=== PATIENT | female | born 1960 | race Caucasian/White ===

== ENCOUNTER 2017-03-30 16:08 | Emergency (ER) | payer OTHER ==
[~2017-03-30] VITALS: Ht 165.1 cm; Wt 68.2 kg
[2017-03-30 16:17] VITALS: BP 156/102; PULSE 86; RESP 18; O2SAT 97
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
[2017-03-30] MEDS ORDERED: Promethazine 25 mg/mL Inj IM ONE (18:50)
== END 2017-03-30 19:25 | disposition home or self-care (01) ==
LOC: SED 16:08
DX: G43.919 Migraine, unspecified, intractable, without status migrainosus (principal); Y04.8XXD Assault by other bodily force, subsequent encounter; Y93.89 Activity, other specified; Y99.8 Other external cause status; Y92.009 Unspecified place in unspecified non-institutional (private) residence as the place of occurrence of the external cause; F43.10 Post-traumatic stress disorder, unspecified; F41.9 Anxiety disorder, unspecified; F17.200 Nicotine dependence, unspecified, uncomplicated; Z91.5 Personal history of self-harm; Z59.0 Homelessness; Z88.0 Allergy status to penicillin; Z88.8 Allergy status to other drugs, medicaments and biological substances